=== PATIENT | female | born 1965 | race Caucasian/White ===

== ENCOUNTER 2021-01-22 09:01 | Outpatient (CLI) | payer BC, MEDICARE | END 2021-01-22 09:02 | disposition home or self-care (01) | LOC: CSHULT 09:01 | PROVIDERS: ATTEND Internal Medicine Infectious Disease | DX: N39.0 Urinary tract infection, site not specified (principal) | CPT/HCPCS: 76770 ==

== ENCOUNTER 2021-09-26 20:55 | Emergency (ER) | payer BC, MEDICARE ==
[2021-09-26] MEDS ORDERED: Bupivacaine PF 0.5% 30 ML VIAL ONE (22:32)
== END 2021-09-26 23:07 | disposition home or self-care (01) ==
LOC: CSHERS 20:55
DX: S61.212A Laceration without foreign body of right middle finger without damage to nail, initial encounter (principal); S61.210A Laceration without foreign body of right index finger without damage to nail, initial encounter; I10 Essential (primary) hypertension; X58.XXXA Exposure to other specified factors, initial encounter
CPT/HCPCS: 12001; S0020

== ENCOUNTER 2023-05-11 10:46 | Outpatient (CLI) | payer BC, MEDICARE | END 2023-05-11 10:47 | disposition home or self-care (01) | LOC: CSHMAMMO 10:46 | PROVIDERS: ATTEND Internal Medicine | DX: Z12.31 Encounter for screening mammogram for malignant neoplasm of breast (principal); Z13.820 Encounter for screening for osteoporosis; Z80.3 Family history of malignant neoplasm of breast; Z78.0 Asymptomatic menopausal state | CPT/HCPCS: 77063; 77067; 77080 ==

== ENCOUNTER 2024-05-11 14:15 | Outpatient (CLI) | payer MEDICARE | END 2024-05-11 14:16 | disposition home or self-care (01) | LOC: CSHMAMMO 14:15 | PROVIDERS: ATTEND Internal Medicine | DX: Z12.31 Encounter for screening mammogram for malignant neoplasm of breast (principal); Z80.3 Family history of malignant neoplasm of breast; Z91.89 Other specified personal risk factors, not elsewhere classified | CPT/HCPCS: 77063; 77067 ==